=== PATIENT | female | born 1950 | race Hispanic/Latino ===

== ENCOUNTER 2016-10-09 09:37 | Emergency (ER) | payer OTHER ==
[2016-10-09 09:42] VITALS: RESP 18
--- NOTE | 2016-10-09 11:23 | C.PDOC ---
History Of Present Illness 10/09/2016 Edita Gerber is a 65 year old female, whose past medical history includes HTN , presents to the emergency department complaining of bad vision. Patient reports that years ago she had eye surgery and ever since then her vision became worse, however, three days ago while she was working she describes her right eye vision became a silveira shade. Patient states there is no eye pain. Patient denies chest pain, shortness of breath, headache, fever, chills, cough, nausea, vomiting, diarrhea, abdominal pain, dizziness or other complaints. Time Seen by Provider: 10/09/16 10:40 Chief Complaint (Nursing): Eye Problem History Per: Patient History/Exam Limitations: no limitations Onset/Duration Of Symptoms: Days (three days ago), Gradual Current Symptoms Are (Timing): Still Present Injury To Eye?: No Severity: None Wears Contact Lens?: No Associated Symptoms: Decreased Vision. denies: Pain, Swelling Past Medical History Reviewed: Historical Data, Nursing Documentation, Vital Signs Vital Signs: Last Vital Signs Temp 97.7 F 10/09/16 11:32 Pulse 55 L 10/09/16 11:32 Resp 18 10/09/16 11:32 BP 130/70 10/09/16 11:32 Pulse Ox 100 10/09/16 17:43 - Medical History PMH: HTN Family History: States: No Known Family Hx - Social History Hx Alcohol Use: No Hx Substance Use: No - Immunization History Hx Tetanus Toxoid Vaccination: No Hx Influenza Vaccination: Yes Hx Pneumococcal Vaccination: No Review Of Systems Except As Marked, All Systems Reviewed And Found Negative. Constitutional: Negative for: Fever Eyes: Positive for: Vision Change. Negative for: Pain, Redness Cardiovascular: Negative for: Chest Pain Respiratory: Negative for: Shortness of Breath Gastrointestinal: Negative for: Abdominal Pain Neurological: Negative for: Headache, Dizziness Physical Exam - Physical Exam Appears: Well, Non-toxic, No Acute Distress Skin: Normal Color, Warm, Dry Head: Atraumatic, Normacephalic Eye(s): bilateral: Normal Inspection, PERRL, EOMI, right: Other (right vision diminished ) Nose: Normal Throat: Normal Neck: Normal Cardiovascular: Rhythm Regular Respiratory: Normal Breath Sounds Gastrointestinal/Abdominal: Normal Exam Back: Normal Inspection Extremity: Normal ROM Neurological/Psych: Oriented x3, Normal Speech, Normal Motor, Normal Sensation Gait: Steady ED Course And Treatment O2 Sat by Pulse Oximetry: 100 (room air) Pulse Ox Interpretation: Normal Medical Decision Making Medical Decision Makin10/09/2016 Case was discussed with Dr. Roldan, sidewalk repairer, who is aware of the plan. He plans to follow up with the patient tomorrow at 13:30. Patient feels better. Discussed results and plan with patient who expresses understanding. All questions answered and there is agreement with the plan to discharge home with instructions. Patient stable for discharge. Adviced to return if symptoms persist or worsen. Disposition - Disposition Referrals: Anish Roldan MD [Staff Provider] - Disposition: HOME/ ROUTINE Disposition Time: 11:23 Condition: STABLE Additional Instructions: Follow up with tomorrow at 1:30 pm. Return to ED if feel worse. Instructions: Blurred Vision (ED) Forms: [employer] (Senegalese) - Clinical Impression Clinical Impression: Visual acuity reduced - Scribe Statement The provider has reviewed the documentation as recorded by the Scribe 10/09/2016 Christine Mooreibe Attestation: All medical record entries made by the Scribe were at my direction and personally dictated by me. I have reviewed the chart and agree that the record accurately reflects my personal performance of the history, physical exam, medical decision making, and the department course for this patient. I have also personally directed, reviewed, and agree with the discharge instructions and disposition.
[2016-10-09 11:33] VITALS: BP 130/70; PULSE 55; TEMP 97.7
[2016-10-09 17:35] VITALS: O2SAT 100
== END 2016-10-09 11:47 | disposition home or self-care (01) ==
LOC: C.ER 09:37
DX: H53.8 Other visual disturbances (principal)

== ENCOUNTER 2016-12-13 17:51 | Emergency (ER) | payer OTHER ==
[2016-12-13 18:11] VITALS: BP 156/77; PULSE 62; TEMP 97.8; O2SAT 100
--- NOTE | 2016-12-13 18:39 | C.PDOC ---
History Of Present Illness 65 year old female presents to the ED for evaluation of a callus-like dry lesion between the right 2nd and 3rd toes which she noted a couple months ago. Patient denies fever, chills, discharge, or recent trauma/injury to the area. Time Seen by Provider: 12/13/16 18:13 Chief Complaint (Nursing): Lower Extremity Problem/Injury History Per: Patient History/Exam Limitations: no limitations Onset/Duration Of Symptoms: Other (months ) Current Symptoms Are (Timing): Still Present - Ankle/Foot Description Of Injury: denies: Fell, Struck With Object, Struck Against Object Past Medical History Reviewed: Historical Data, Nursing Documentation, Vital Signs Vital Signs: Last Vital Signs Temp 97.8 F 12/13/16 18:10 Pulse 62 12/13/16 18:10 Resp 18 12/13/16 18:58 BP 156/77 H 12/13/16 18:10 Pulse Ox 100 12/15/16 16:35 - Medical History PMH: HTN Surgical History: No Surg Hx Family History: States: Unknown Family Hx - Social History Hx Alcohol Use: No Hx Substance Use: No - Immunization History Hx Tetanus Toxoid Vaccination: No Hx Influenza Vaccination: Yes Hx Pneumococcal Vaccination: No Review Of Systems Constitutional: Negative for: Fever, Chills Skin: Positive for: Lesions (callus between right 2nd and 3rd digits ) Physical Exam - Physical Exam Appears: Non-toxic, No Acute Distress Skin: Normal Color, Warm, Dry Extremity: Normal ROM, Tenderness (to right 2nd and 3rd digits on palpation ), Capillary Refill (less than 2 seconds ), No Deformity, No Swelling, No Other ( discharge or erythema from right foot ) Pulses: Right Dorsalis Pedis: Normal Neurological/Psych: Oriented x3, Normal Speech, Normal Cognition Gait: Steady ED Course And Treatment O2 Sat by Pulse Oximetry: 100 (on RA) Pulse Ox Interpretation: Normal Disposition Counseled Patient/Family Regarding: Diagnosis, Need For Followup, Rx Given - Disposition Referrals: Podiatry Clinic [Outside] [facility] [Outside] Disposition: HOME/ ROUTINE Disposition Time: 18:37 Condition: STABLE Additional Instructions: Follow up in medical clinic and in podiatry clinic; call for appointments. Use cream between toes twice a day. Tylenol for pain if needed. Prescriptions: Acetaminophen [Tylenol 325mg tab] 650 mg PO Q6 #30 tab Clotrimazole 1% Cream [Lotrimin 1% CREAM] 1 applic TOP BID #1 tube Instructions: Tinea Pedis (ED) Forms: [facility] (Central African), General Discharge Instructions - Clinical Impression Clinical Impression: Foot pain, right, Tinea pedis - PA / CONFERENCE CONCIERGE / Resident Statement MD/DO has reviewed & agrees with the documentation as recorded. - Scribe Statement The provider has reviewed the documentation as recorded by the Scribe (Dianne Jones) All medical record entries made by the Scribe were at my direction and personally dictated by me. I have reviewed the chart and agree that the record accurately reflects my personal performance of the history, physical exam, medical decision making, and the department course for this patient. I have also personally directed, reviewed, and agree with the discharge instructions and disposition.
[2016-12-13 18:59] VITALS: RESP 18
== END 2016-12-13 18:58 | disposition home or self-care (01) ==
LOC: C.ER 17:51
DX: B35.3 Tinea pedis (principal); M79.671 Pain in right foot

== ENCOUNTER 2017-02-17 14:05 | Emergency (ER) | payer OTHER ==
[2017-02-17 14:31] VITALS: O2SAT 100
[2017-02-17] MEDS ORDERED: Tetanus/Diphtheria Toxoids 0.5 ml Syringe IM ONE ×2 (14:36→14:48)
--- NOTE | 2017-02-17 14:36 | C.PDOC ---
History Of Present Illness 66 y/o female was brought by ambulance to the ED for evaluation of a head injury sustained from a mechanical fall earlier today. Patient states that the injury occurred after she slipped on ice and fell down on her face. Pt reports, mild pain over contusion area on face- Left zygoma and Left upper lip. Otherwise , pt denies loss of consciousness, syncope, severe headaches, nausea, vomiting , focal deficits, vision changes, dizziness, neck pain, CP, SOB, dyspnea, palpitation, abd. pain, back pain, UTI sx, incontinence, saddle anesthesia, denies weakness, sensory or vascular deficits to B/L UEs and LEs. Ambulatory in ED with stable gait. - HPI Time Seen by Provider: 02/17/17 14:24 Chief Complaint (Nursing): Trauma History Per: Patient History/Exam Limitations: no limitations Onset/Duration Of Symptoms: Hrs Severity: Moderate - Fall Fall:Prior To Injury: Slipped (slipped on ice) Past Medical History Reviewed: Historical Data, Nursing Documentation, Vital Signs Vital Signs: Last Vital Signs Temp 98.3 F 02/17/17 16:14 Pulse 60 02/17/17 16:14 Resp 14 02/17/17 16:14 BP 135/72 02/17/17 16:14 Pulse Ox 100 02/17/17 16:16 - Medical History PMH: HTN Surgical History: No Surg Hx Family History: States: No Known Family Hx - Social History Hx Alcohol Use: No Hx Substance Use: No - Immunization History Hx Tetanus Toxoid Vaccination: No Hx Influenza Vaccination: No Hx Pneumococcal Vaccination: No Review Of Systems Except As Marked, All Systems Reviewed And Found Negative. Eyes: Negative for: Vision Change, Other (focal deficits) ENT: Negative for: Ear Discharge, Nose Discharge Cardiovascular: Negative for: Chest Pain, Palpitations, Edema, Light Headedness Respiratory: Negative for: Shortness of Breath Gastrointestinal: Negative for: Nausea, Vomiting Genitourinary: Negative for: Incontinence Musculoskeletal: Negative for: Neck Pain, Back Pain Skin: Positive for: Lesions Neurological: Positive for: Other (Head injury with abrasion). Negative for: Weakness, Numbness, Headache, Dizziness (or LOC, syncope) Physical Exam - Physical Exam Appears: Well, Non-toxic, No Acute Distress Skin: Normal Color, Warm Head: Normacephalic, Abrasion (left zygomal abrasion) Eye(s): bilateral: PERRL, EOMI (no pain or limitation on extraocula movemnet.), Other (No periorbital edema or ecchysmoes, no tenderness, no eye disachrges.) Ear(s): Bilateral: Normal Nose: No Deformity, No Tenderness, No Septal Hematoma, Other (small puncture wound in nasolabial fold, mild edema, No wound discahrges, no palpable deformity.) Oral Mucosa: Moist, No Drooling, No Trismus Tongue: Normal Appearing, No Lesions Lips: Normal Appearing Throat: No Erythema, No Drooling Neck: Trachea Midline, No Midline Cervical Tenderness, No Paracervical Tenderness, No Step Off Deformity, Supple Chest: Symmetrical, No Deformity, No Tenderness Cardiovascular: Rhythm Regular Respiratory: No Accessory Muscle Use, No Stridor, No Wheezing Gastrointestinal/Abdominal: Normal Exam, Soft, No Tenderness, No Distention, No Guarding Back: No Vertebral Tenderness Extremity: Normal ROM (B/L UEs and LEs), Tenderness (mild with superificial punctate abrsion over right patella. FAROM, no deformity, no neurovascular deficits.), No Deformity, No Swelling Extremity: Bilateral: Atraumatic, Normal Color And Temperature, Normal ROM Neurological/Psych: Oriented x3, Normal Speech, Normal Motor, Normal Sensation, Normal Reflexes ED Course And Treatment O2 Sat by Pulse Oximetry: 100 (RA) Pulse Ox Interpretation: Normal - CT Scan/US CT head w/o contrast Other Rad Studies (CT/US): Radiology Report Reviewed CT/US Interpretation: IMPRESSION: No acute intracranial hemorrhage. Suspect minimal chronic white matter ischemic changes. Mild central volume loss. Status post bilateral cataract surgery. Note is made of a small linear focus of increased attenuation within the mid superior margin of the left globe of uncertain etiology. Recommend fundoscopic examination. There is mild elongation globes in this patient is status post bilateral cataract ; rule out staphyloma . Borderline -mild exophthalmos. Recommend followup up ophthalmologic- fundoscopic exam. . CT max/face w/o contrast Other Rad Studies (CT/US): Radiology Report Reviewed CT/US Interpretation: IMPRESSION: No evidence of acute fracture at the maxillofacial bones. Left periorbital and left facial soft tissue swelling. Progress Note: Given Tetanus vaccine and Tylenol for pain. Ordered maxillofacial and head CT's. On re-evaluation, pt is afebrile, hemodynamicaly stable. non-toxic. Ambulatory in Ed with stable gait. PulsEOx 100% RA. Head: AT/NC, (+) left sided facial contusion. No trismus, no drooling. Eyes: no pain or limitation on extraocula movement, no periorbital edema or eechymoses. neck: Supple, (-) midline tenderness. Lungs: CTA B/L, BS equal B/L. Abd: benign, (-) guaridng, (-) rebound. Neurologicaly intact. Imaging results review and discussed with pt. Pt has clinical findings c/w head injury, facial contusion, facial abrasion. Pt advised OBS 48 hrs for any sign of head injury-return to ED immediately if any new changes. Pt ref. to f/u with PMD, OPht in 2-3 days for re-eavl. return to ED if any worsening or new changes. Disposition Counseled Patient/Family Regarding: Studies Performed, Diagnosis, Need For Followup, Rx Given - Disposition Referrals: [facility] [Outside] Wolf Geiger [Staff Provider] - Disposition: HOME/ ROUTINE Disposition Time: 15:35 Condition: STABLE Additional Instructions: NO PHYSICAL ACTIVITY FOR 1 WEEK "BRAIN REST" FOR 1 WEEK, AVOID PROLONG READING, EYE STRAINING, ETC. TYLENOL NEED FOR HEADACHE OBSERVE 48 HOURS FOR ANY SIGN OF HEAD INJURY-INTRACTABLE HEADACHE, VOMITING, VISUAL CHANGE, FOCAL DEFICITS-RETURN TO ED IMMEDIATELY FOR RE-EVALUATION. FOLLOW UP WITH PMD, OPHTHALMOLOGY IN 1-2 DAYS FOR RE-EVALUATION. Instructions: Head Injury (ED), Facial Contusion (ED) Forms: [employer] (Turkmen) - Clinical Impression Clinical Impression: Head injury, Facial contusion, Abrasion - PA / ADJUNCT PROFESSOR / Resident Statement MD/DO has reviewed & agrees with the documentation as recorded. - Scribe Statement Amarilys Read Provider Attestation: All medical record entries made by the Scribe were at my direction and personally dictated by me. I have reviewed the chart and agree that the record accurately reflects my personal performance of the history, physical exam, medical decision making, and the department course for this patient. I have also personally directed, reviewed, and agree with the discharge instructions and disposition.
--- NOTE | 2017-02-17 15:46 | CT ---
PROCEDURE: CT MAXILLOFACIAL BONES WITHOUT CONTRAST HISTORY: injury COMPARISON: None TECHNIQUE: Contiguous axial CT images of the maxillofacial bones were obtained. Coronal and sagittal reformats were generated. Radiation dose: Total exam DLP = 763.77 mGy-cm. This CT exam was performed using one or more of the following dose reduction techniques: Automated exposure control, adjustment of the mA and/or kV according to patient size, and/or use of iterative reconstruction technique. FINDINGS: NASAL BONES: Unremarkable. ORBITS: Unremarkable. PARANASAL SINUSES/ MASTOIDS: Clear. MAXILLA: Unremarkable. MANDIBLE/ TEMPOROMANDIBULAR JOINTS: Unremarkable. SKULL BASE: Unremarkable. TEMPORAL BONES: Middle ears and mastoid grossly unremarkable. OTHER FINDINGS: Left periorbital and left facial soft tissue swelling. No evidence of hematoma or fluid collection. IMPRESSION: No evidence of acute fracture at the maxillofacial bones. Left periorbital and left facial soft tissue swelling.
--- NOTE | 2017-02-17 15:48 | CT ---
PROCEDURE: CT scan of the brain dated 02/17/2017. HISTORY: Injury. COMPARISON: Correlation made with concurrent CT scan of the maxillofacial skeleton. TECHNIQUE: Axial computed tomography images were obtained through the head/brain without intravenous contrast. Radiation dose: Total exam DLP = 882.63 mGy-cm. This CT exam was performed using one or more of the following dose reduction techniques: Automated exposure control, adjustment of the mA and/or kV according to patient size, and/or use of iterative reconstruction technique. FINDINGS: HEMORRHAGE: No acute parenchymal, subarachnoid or extra-axial hemorrhage. BRAIN: Minor diffuse/confluent chronic white matter ischemic changes. No evidence of large acute infarct. Mild central volume loss evidenced by slight disproportionate enlargement of the ventricles more so than sulci. The no obvious extra-axial masses or collections identified on this noncontrast study. VENTRICLES: No obstructive hydrocephalus. CALVARIUM: There are no acute calvarial fractures. PARANASAL SINUSES: Unremarkable as visualized. No significant inflammatory changes. MASTOID AIR CELLS: Unremarkable as visualized. No inflammatory changes. OTHER FINDINGS: Changes of bilateral cataract surgery. Note is made of a small linear focus of increased attenuation within the mid superior margin of the left globe of uncertain etiology. . The globes are slightly elongated in AP ; rule out staphyloma . . . Borderline exophthalmos. . . Recommend ophthalmologic -fundoscopic examination IMPRESSION: No acute intracranial hemorrhage. Suspect minimal chronic white matter ischemic changes. Mild central volume loss. Status post bilateral cataract surgery. Note is made of a small linear focus of increased attenuation within the mid superior margin of the left globe of uncertain etiology. Recommend fundoscopic examination. There is mild elongation globes in this patient is status post bilateral cataract ; rule out staphyloma . Borderline -mild exophthalmos. Recommend followup up ophthalmologic-fundoscopic exam. .
[2017-02-17 16:15] VITALS: BP 135/72; PULSE 60; RESP 14; TEMP 98.3
== END 2017-02-17 16:42 | disposition home or self-care (01) ==
LOC: C.ER 14:05
DX: S00.83XA Contusion of other part of head, initial encounter (principal); S00.81XA Abrasion of other part of head, initial encounter; W00.0XXA Fall on same level due to ice and snow, initial encounter

== ENCOUNTER 2017-03-29 09:30 | Emergency (ER) | payer OTHER, SELFPAY ==
[2017-03-29 09:49] VITALS: BP 130/74; PULSE 71; RESP 16; TEMP 97.9; O2SAT 100
--- NOTE | 2017-03-29 10:31 | C.PDOC ---
History Of Present Illness 66 y/o female presents to the ER for blood pressure medication refill.Patient states that she takes Sotalol 40 mg daily and Valsartan-HCTZ one tab daily. Patient does not have any physical complaints. Time Seen by Provider: 03/29/17 10:00 Chief Complaint (Nursing): Med Refill History Per: Patient History/Exam Limitations: no limitations Past Medical History Reviewed: Historical Data, Nursing Documentation, Vital Signs Vital Signs: Last Vital Signs Temp 97.9 F 03/29/17 09:42 Pulse 71 03/29/17 09:42 Resp 16 03/29/17 09:42 BP 130/74 03/29/17 09:42 Pulse Ox 100 03/29/17 13:06 - Medical History PMH: HTN Surgical History: No Surg Hx Family History: States: No Known Family Hx - Social History Hx Alcohol Use: No Hx Substance Use: No - Immunization History Hx Tetanus Toxoid Vaccination: No Hx Influenza Vaccination: No Hx Pneumococcal Vaccination: No Review Of Systems Except As Marked, All Systems Reviewed And Found Negative. Physical Exam - Physical Exam Appears: Non-toxic, No Acute Distress Skin: Normal Color, Warm Head: Atraumatic, Normacephalic Eye(s): bilateral: Normal Inspection, PERRL Nose: Normal Oral Mucosa: Moist Neck: Supple Chest: Symmetrical Cardiovascular: Rhythm Regular Respiratory: Normal Breath Sounds, No Accessory Muscle Use, No Rales, No Rhonchi , No Wheezing Extremity: Normal ROM Neurological/Psych: Oriented x3, Normal Speech, Normal Cognition, Normal Motor, Normal Sensation ED Course And Treatment O2 Sat by Pulse Oximetry: 100 (RA) Pulse Ox Interpretation: Normal Progress Note: Patient given bp medication refill and discharged. Disposition Counseled Patient/Family Regarding: Diagnosis, Need For Followup, Rx Given - Disposition Referrals: [facility] [Outside] Disposition: HOME/ ROUTINE Disposition Time: 10:25 Condition: STABLE Additional Instructions: FOLLOW UP WITH MEDICAL CLINIC IN 1-2 DAYS USE MEDICATIONS DIRECTED RETURN TO ER IF SYMPTOMS WORSEN Prescriptions: Sotalol HCl [Betapace AF] 40 mg PO DAILY #30 tablet Valsartan/Hydrochlorothiazide [Valsartan-Hctz 160-12.5 mg Tab] 1 each PO DAILY # 30 tablet Forms: [facility] (Uzbek), General Discharge Instructions Print Language: KAZAKH - Clinical Impression Clinical Impression: Medication refill - Scribe Statement The provider has reviewed the documentation as recorded by the Scribe Amarilys Read Provider Attestation: All medical record entries made by the Scribe were at my direction and personally dictated by me. I have reviewed the chart and agree that the record accurately reflects my personal performance of the history, physical exam, medical decision making, and the department course for this patient. I have also personally directed, reviewed, and agree with the discharge instructions and disposition.
== END 2017-03-29 11:05 | disposition home or self-care (01) ==
LOC: C.ER 09:30
DX: Z76.0 Encounter for issue of repeat prescription (principal)

== ENCOUNTER 2017-09-20 14:36 | Emergency (ER) | payer SELFPAY ==
[2017-09-20 14:43] VITALS: BMI 28.8
[2017-09-20 14:48] VITALS: O2SAT 98
--- NOTE | 2017-09-20 16:38 | C.PDOC ---
History Of Present Illness 66 y/o female presents to ED with c/o constipation for 5 days. Patient states last bowel movement was 5 days ago and is only able to pass gas. Patient tried to disimpact herself manually yesterday but did no succeed and currently denies fever, nausea, vomiting or any other complaints at this time. Time Seen by Provider: 09/20/17 16:21 Chief Complaint (Nursing): GI Problem History Per: Patient History/Exam Limitations: no limitations Onset/Duration Of Symptoms: Days Current Symptoms Are (Timing): Still Present Past Medical History Reviewed: Historical Data, Nursing Documentation, Vital Signs Vital Signs: Last Vital Signs Temp 98.3 F 09/20/17 14:43 Pulse 76 09/20/17 14:43 Resp 18 09/20/17 14:43 BP 132/70 09/20/17 14:43 Pulse Ox 98 09/20/17 16:41 - Medical History PMH: HTN Surgical History: No Surg Hx Family History: States: No Known Family Hx - Social History Hx Alcohol Use: No Hx Substance Use: No - Immunization History Hx Tetanus Toxoid Vaccination: No Hx Influenza Vaccination: No Hx Pneumococcal Vaccination: No Review Of Systems Constitutional: Negative for: Fever, Chills Gastrointestinal: Positive for: Constipation. Negative for: Nausea, Vomiting, Abdominal Pain, Hematochezia Musculoskeletal: Negative for: Back Pain Skin: Negative for: Rash Physical Exam - Physical Exam Appears: Non-toxic, No Acute Distress Skin: Warm, Dry, No Rash Head: Atraumatic, Normacephalic Eye(s): bilateral: Normal Inspection Oral Mucosa: Moist Neck: Supple Cardiovascular: Rhythm Regular Respiratory: Normal Breath Sounds, No Rales, No Rhonchi, No Wheezing Gastrointestinal/Abdominal: Soft, No Tenderness, No Guarding, No Rebound Rectal: Rectal Tone (normal), Other (vault filled with soft stool but unable to remove manually.) Back: No CVA Tenderness, No Paraspinal Tenderness Neurological/Psych: Oriented x3, Normal Speech ED Course And Treatment O2 Sat by Pulse Oximetry: 98 (RA) Pulse Ox Interpretation: Normal - Other Rad obstructive series X-Ray: Interpreted by Me Interpretation: increased stool volume without evidence of mechanical obstruction. Progress Note: Patient had a fleet enema and tap water soap suds enema x2. Was able to pass a small amount of soft stool. Rectal exam shows persistent stool in the vault. Disposition Counseled Patient/Family Regarding: Studies Performed, Diagnosis, Need For Followup - Disposition Referrals: [facility] [Outside] Disposition: HOME/ ROUTINE Disposition Time: 21:46 Condition: STABLE Instructions: Constipation in Adults Forms: [facility] (Telugu) - Clinical Impression Clinical Impression: Constipation - Scribe Statement The provider has reviewed the documentation as recorded by the Teresaibjose Altman All medical record entries made by the Missy were at my direction and personally dictated by me. I have reviewed the chart and agree that the record accurately reflects my personal performance of the history, physical exam, medical decision making, and the department course for this patient. I have also personally directed, reviewed, and agree with the discharge instructions and disposition.
--- NOTE | 2017-09-20 16:52 | RAD ---
Date of service: 09/20/2017 PROCEDURE: Radiographs of the chest and abdomen (obstructive series) HISTORY: constipation COMPARISON: No prior. TECHNIQUE: AP radiograph of the chest, with upright and supine radiographs of the abdomen. FINDINGS: CHEST: Lungs: Clear. Cardiovascular: Normal size heart. No pulmonary vascular congestion. Pleura: No pleural fluid. No pneumothorax. Other findings: None. ABDOMEN AND PELVIS: Bowel: Unremarkable bowel gas pattern. No evidence of mechanical obstruction. Free air: None. Bones: Unremarkable. Other findings: None. IMPRESSION: Unremarkable radiographs of chest and abdomen. No evidence of mechanical bowel obstruction.
[2017-09-20] MEDS ORDERED: Magnesium Citrate Oral SOL (300 ml) PO ONE (21:48)
[2017-09-20] MEDS ORDERED: Magnesium Citrate Oral SOL (300 ml) ONE (21:56)
[2017-09-20 22:04] VITALS: BP 120/70; PULSE 70; RESP 14; TEMP 98
== END 2017-09-20 22:04 | disposition home or self-care (01) ==
LOC: C.ER 14:36
DX: K59.00 Constipation, unspecified (principal)